=== PATIENT | female | born 1975 | race African-American/Black ===

== ENCOUNTER 2017-07-28 15:29 | Emergency (ER) | payer OTHER ==
--- NOTE | 2017-07-28 15:33 | PDOC ---
Rapid Medical Evaluation Time Seen by Provider: 07/28/17 15:30 Medical Evaluation: Allergies Allergy/AdvReac Type Severity Reaction Status Date / Time Penicillins Allergy Verified 12/13/15 12:44 07/28/17 15:30 I have performed a brief in-person evaluation of this patient. The patient presents with a chief complaint of: Whole body pain w/ DRAPER and blurry pain, ran out of pain meds (oxycodone/naprosyn). H/o sickle cell disease , f/u with heme at [facility] but has been lost to f/u, asthma, partial hysterectomy (2/2 fibroids/anemia) Pertinent physical exam findings:Stable but appears uncomfortable I have ordered the following:labs/ekg/cxr The patient will proceed to the ED for further evaluation. 07/28/17 15:34
[2017-07-28 15:35] VITALS: BP 144/88; PULSE 81; TEMP 97.9; BMI 40.3
[2017-07-28 16:03] LABS: BASO % 0.8 % (0-2.0); EOS % 2.6 % (0-4.5); HEMATOCRIT 41.1 % (32.4-45.2); HEMOGLOBIN 13.7 GM/dL (10.7-15.3); LYMPH % 47.5 % (8-40); MCH 29.5 pg (25.7-33.7); MCHC 33.5 g/dl (32.0-36.0); MEAN CELL VOLUME 88.2 fl (80-96); MEAN PLT VOLUME 8.8 fl (7.5-11.1); MONO % 11.1 % (3.8-10.2); PLATELET COUNT 205 K/MM3 (134-434); RBC 4.66 M/mm3 (3.60-5.2); RDW 13.4 % (11.6-15.6); WHITE BLOOD COUNT 4.6 K/mm3 (4.0-10.0)
[2017-07-28 16:36] LABS: ALBUMIN 4.2 g/dl (3.4-5.0); ANION GAP 3 (8-16); BILIRUBIN,TOTAL 0.3 mg/dL (0.2-1.0); BLOOD UREA NITROGEN 9 mg/dL (7-18); CALCIUM 8.8 mg/dL (8.5-10.1); CHLORIDE 105 mmol/L (98-107); CO2 31 mmol/L (21-32); CREATININE 0.8 mg/dL (0.55-1.02); GLUCOSE,RANDOM 105 mg/dL (74-106); POTASSIUM 4.4 mmol/L (3.5-5.1); SGOT/AST 12 U/L (15-37); SGPT/ALT 17 U/L (12-78); SODIUM 139 mmol/L (136-145); TOT PROT 7.4 g/dl (6.4-8.2)
[2017-07-28 16:39] LABS: ALK PHOS 67 U/L (45-117)
--- NOTE | 2017-07-28 18:41 | PDOC ---
History of Present Illness <Soraya Cabrera - Last Filed: 07/28/17 18:39> - General History Source: Patient Exam Limitations: No Limitations - History of Present Illness Initial Comments: 07/28/17 18:44 The patient is a 42 year old female, with a significant past medical history of sickle cell disease, fibroids(s/p partial hysterectomy), asthma and anemia, who presents to the emergency department with diffuse joint aches for several days. Patient reports her symptoms are similar to her prior sickle cell pain crisis. She denies any associated chest pain, shortness of breath, diaphoresis, or palpitations. Patient states she typically takes Naproxen and Oxycodone for her pain, but ran out of her meds. She endorses a migraine headache, but denies any recent fever, chills, cough, or dizziness. She denies any abdominal pain, nausea , vomiting, diarrhea, constipation, or any other changes in bowel/bladder habits. She denies any recent travel or sick contacts. Allergies: NKDA Past Surgical History: Partial Hysterectomy, right knee surgery Social History: Non smoker. No ETOH or recreational drug use. 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 Knee Surgery at 31y.o) - Suicide/Smoking/Psychosocial Hx Smoking Status: No Smoking History: Never smoked Have you smoked in the past 12 months: No Number of Cigarettes Smoked Daily: 0 Cigars Per Day: 1 Information on smoking cessation initiated: No Hx Alcohol Use: No Drug/Substance Use Hx: No Substance Use Type: None <Soraya Cabrera - Last Filed: 07/28/17 18:39> <Roge Dennison - Last Filed: 07/28/17 18:45> - Past Medical History Allergies/Adverse Reactions: Allergies Allergy/AdvReac Type Severity Reaction Status Date / Time Penicillins Allergy Verified 07/28/17 15:35 Home Medications: Ambulatory Orders Azithromycin [Zithromax Tri-Ihsan (3 DAYS) -] 500 mg PO DAILY #3 tablet 12/13/15 Review of Systems - Review of Systems Able to Perform ROS?: Yes Comments:: 07/28/17 18:44 GENERAL/CONSTITUTIONAL: No fever or chills. No weakness. HEAD, EYES, EARS, NOSE AND THROAT: No change in vision. No ear pain or discharge. No sore throat. CARDIOVASCULAR: No chest pain or shortness of breath. RESPIRATORY: No cough, wheezing, or hemoptysis. GASTROINTESTINAL: No nausea, vomiting, diarrhea or constipation. GENITOURINARY: No dysuria, frequency, or change in urination. MUSCULOSKELETAL: +Diffuse joint aches. No joint or muscle swelling. No neck or back pain. SKIN: No rash NEUROLOGIC: +Headache. No vertigo, loss of consciousness, or change in strength/ sensation. ENDOCRINE: No increased thirst. No abnormal weight change. HEMATOLOGIC/LYMPHATIC: No anemia, easy bleeding, or history of blood clots. ALLERGIC/IMMUNOLOGIC: No hives or skin allergy. <Roge Dennison - Last Filed: 07/28/17 18:45> *Physical Exam - Vital Signs Last Vital Signs Temp Pulse Resp BP Pulse Ox 97.9 F 81 19 144/88 100 07/28/17 15:31 07/28/17 15:31 07/28/17 15:31 07/28/17 15:31 07/28/17 15:31 <Soraya Cabrera - Last Filed: 07/28/17 18:39> - Vital Signs Last Vital Signs Temp Pulse Resp BP Pulse Ox 97.9 F 81 19 144/88 100 07/28/17 15:31 07/28/17 15:31 07/28/17 15:31 07/28/17 15:31 07/28/17 15:31 - Physical Exam Comments: 07/28/17 18:45 GENERAL: Awake, alert, and fully oriented, in no acute distress HEAD: No signs of trauma EYES: PERRLA, EOMI, sclera anicteric, conjunctiva clear ENT: Auricles normal inspection, hearing grossly normal, nares patent. Moist mucosa NECK: Normal ROM, supple, no lymphadenopathy, JVD, or masses LUNGS: Breath sounds equal, clear to auscultation bilaterally. No wheezes, and no crackles HEART: Regular rate and rhythm, normal S1 and S2, no murmurs, rubs or gallops ABDOMEN: Soft, nontender, normoactive bowel sounds. No guarding, no rebound. No masses EXTREMITIES: Normal range of motion, no edema. No clubbing or cyanosis. No cords, erythema, or tenderness. DP/PT pulses 2+ and symmetric. NEUROLOGICAL: Moves all extremities. Normal speech, normal gait SKIN: Warm, Dry, normal turgor, no rashes or lesions noted. <Roge Dennison - Last Filed: 07/28/17 18:45> ED Treatment Course - LABORATORY CBC & Chemistry Diagram: 07/28/17 15:47 07/28/17 15:47 - ADDITIONAL ORDERS Additional order review: Laboratory Results 07/28/17 15:47 Sodium 139 Potassium 4.4 Chloride 105 Carbon Dioxide 31 Anion Gap 3 L BUN 9 Creatinine 0.8 Creat Clearance w eGFR > 60 Random Glucose 105 Calcium 8.8 Total Bilirubin 0.3 AST 12 L ALT 17 Alkaline Phosphatase 67 Creatine Kinase 125 Troponin I < 0.02 Total Protein 7.4 Albumin 4.2 07/28/17 15:47 RBC 4.66 MCV 88.2 MCHC 33.5 RDW 13.4 D MPV 8.8 Neutrophils % 38.0 L D Lymphocytes % 47.5 H D Monocytes % 11.1 H Eosinophils % 2.6 Basophils % 0.8 <Soraya Cabrera - Last Filed: 07/28/17 18:39> - LABORATORY CBC & Chemistry Diagram: 07/28/17 15:47 07/28/17 15:47 - ADDITIONAL ORDERS Additional order review: Laboratory Results 07/28/17 15:47 Sodium 139 Potassium 4.4 Chloride 105 Carbon Dioxide 31 Anion Gap 3 L BUN 9 Creatinine 0.8 Creat Clearance w eGFR > 60 Random Glucose 105 Calcium 8.8 Total Bilirubin 0.3 AST 12 L ALT 17 Alkaline Phosphatase 67 Creatine Kinase 125 Troponin I < 0.02 Total Protein 7.4 Albumin 4.2 07/28/17 15:47 RBC 4.66 MCV 88.2 MCHC 33.5 RDW 13.4 D MPV 8.8 Neutrophils % 38.0 L D Lymphocytes % 47.5 H D Monocytes % 11.1 H Eosinophils % 2.6 Basophils % 0.8 <Roge Dennison - Last Filed: 07/28/17 18:45> Medical Decision Making - Medical Decision Making 07/28/17 18:39 42-year-old female with a history of uterine fibroids sickle cell anemia here today complaining of generalized whole-body pain starting a few days prior. Denies any chest pain no shortness of breath no moderating factors. Normally takes oxycodone or Naprosyn. States she currently does not have a primary care physician denies any fevers or chills no other complaints On exam she is awake alert no acute distress lungs are clear bilaterally heart is regular without any murmurs rubs or gallops abdomen is soft and nontender extremities are warm and well perfused no noted edema Differential sickle pain crisis, anemia, dehydration, plan chest x-ray EKG labs and pain control with oral Percocets reassess for possible admission versus DC home <Soraya Cabrera - Last Filed: 07/28/17 18:39> *DC/Admit/Observation/Transfer - Attestations Scribe Attestion: 07/28/17 18:45 Documentation prepared by Roge Dennison, acting as medical research tech for Soraya Cabrera MD. <Roge Dennison - Last Filed: 07/28/17 18:45>
[2017-07-28] MEDS ORDERED: SODIUM CHLORIDE 0.9% 500 ML INFUS.BAG IV ONE (18:43)
--- NOTE | 2017-07-28 19:51 | PDOC ---
*Physical Exam - Vital Signs Last Vital Signs Temp Pulse Resp BP Pulse Ox 97.9 F 81 19 144/88 100 07/28/17 15:31 07/28/17 15:31 07/28/17 15:31 07/28/17 15:31 07/28/17 15:31 ED Treatment Course - LABORATORY CBC & Chemistry Diagram: 07/28/17 15:47 07/28/17 15:47 - ADDITIONAL ORDERS Additional order review: Laboratory Results 07/28/17 15:47 Sodium 139 Potassium 4.4 Chloride 105 Carbon Dioxide 31 Anion Gap 3 L BUN 9 Creatinine 0.8 Creat Clearance w eGFR > 60 Random Glucose 105 Calcium 8.8 Total Bilirubin 0.3 AST 12 L ALT 17 Alkaline Phosphatase 67 Creatine Kinase 125 Troponin I < 0.02 Total Protein 7.4 Albumin 4.2 07/28/17 15:47 RBC 4.66 MCV 88.2 MCHC 33.5 RDW 13.4 D MPV 8.8 Neutrophils % 38.0 L D Lymphocytes % 47.5 H D Monocytes % 11.1 H Eosinophils % 2.6 Basophils % 0.8 - Medications Given in the ED: ED Medications Discontinued Medications Generic Name Dose Route Start Last Admin Trade Name Freq PRN Reason Stop Dose Admin Oxycodone/Acetaminophen 2 combo 07/28/17 18:37 07/28/17 19:02 Percocet 5/325 - PO 07/28/17 18:38 2 combo ONCE ONE Administration *DC/Admit/Observation/Transfer Diagnosis at time of Disposition: Sickle cell anemia - Discharge Dispostion Disposition: HOME Condition at time of disposition: Stable Admit: No - Prescriptions Prescriptions: Oxycodone HCl/Acetaminophen [Percocet 5-325 mg Tablet] 1 - 2 tab PO Q6H #20 tablet MDD 4 - Referrals Referrals: Say Suh MD [Staff Physician] - Enedelia Pinedo MD [Staff Physician] - - Patient Instructions Printed Discharge Instructions: DI for Sickle Cell Anemia, Pain Crisis -- Adult Additional Instructions: Please follow up with your doctor or the referral given to you in the ER. TAke medication as needed. Avoid alcohol or driving when take Percoet - Post Discharge Activity
== END 2017-07-28 20:03 | disposition home or self-care (01) ==
LOC: JER 15:29
DX: D57.1 Sickle-cell disease without crisis (principal)
CPT/HCPCS: 36415; 80053; 82550; 84484; 84703; 85025; 85044; 99282-25

== ENCOUNTER 2018-05-17 08:40 | Emergency (ER) | payer OTHER ==
[2018-05-17 08:48] VITALS: BP 136/80; PULSE 63; TEMP 98.4; BMI 33.9
--- NOTE | 2018-05-17 09:30 | PDOC ---
History of Present Illness - General Chief Complaint: Hives Stated Complaint: HIVES Time Seen by Provider: 05/17/18 09:18 Exam Limitations: Clinical Condition - History of Present Illness Initial Comments: 05/17/18 09:31 Patient with no significant past medical history present with complaint of 4 day history of worsening with rashes to bilateral lower extremities which scales on rash. Patient reported rash is not itchy and does not know what causes the rash. Patient reported multiple area of red rashes to bilateral legs and thigh areas. Patient denies recent travel. Timing/Duration: other (4 days) Past History - Past Medical History Allergies/Adverse Reactions: Allergies Allergy/AdvReac Type Severity Reaction Status Date / Time Penicillins Allergy Verified 05/17/18 08:48 Home Medications: Ambulatory Orders Doxycycline Hyclate 100 mg PO BID 7 Days #14 tablet 05/17/18 Hydrocortisone 2.5% Lotion [Hytone 2.5% Lotion -] 1 applic TP BID 7 Days #1 bottle 05/17/18 Anemia: Yes Asthma: Yes COPD: No - Surgical History Abdominal Surgery: Yes (ECTOPIC) Orthopedic Surgery: (R. Knee Surgery at 31y.o) - Suicide/Smoking/Psychosocial Hx Smoking Status: No Smoking History: Never smoked Have you smoked in the past 12 months: No Number of Cigarettes Smoked Daily: 0 Cigars Per Day: 1 Hx Alcohol Use: Yes Drug/Substance Use Hx: No Substance Use Type: None Review of Systems - Review of Systems Able to Perform ROS?: Yes Is the patient limited Arabic proficient: No Constitutional: No: Chills, Fever HEENTM: No: Symptoms Reported Respiratory: No: Symptoms reported Cardiac (ROS): No: Symptoms Reported ABD/GI: No: Nausea, Vomiting Integumentary: Yes: See HPI, Rash (red rashes to b/l LE). No: Lumps, Pruritus All Other Systems: Reviewed and Negative *Physical Exam - Vital Signs Last Vital Signs Temp Pulse Resp BP Pulse Ox 98.4 F 63 15 136/80 100 05/17/18 08:44 05/17/18 08:44 05/17/18 08:44 05/17/18 08:44 05/17/18 08:44 - Physical Exam Comments: 05/17/18 09:34 GENERAL: Well developed, well nourished. Awake and alert. No acute distress. HEENT: Normocephalic, atraumatic. PERRLA, EOMI. No conjunctival pallor. Sclera are non-icteric. Moist mucous membranes. Oropharynx is clear. NECK: Supple. Full ROM. CARDIOVASCULAR: Regular rate and rhythm. No murmurs, rubs, or gallops. Distal pulses are 2+ and symmetric. PULMONARY: No evidence of respiratory distress. Lungs clear to auscultation bilaterally. No wheezing, rales or rhonchi. ABDOMINAL: Soft. Non-tender. Non-distended. No rebound or guarding. No organomegaly. Normoactive bowel sounds. SKIN: Multiple erythematous circular rashes with scales to bilateral lower extremity without excoriations.Warm and dry. Normal capillary refill. NEUROLOGICAL: Alert, awake, appropriate. Gait is normal without ataxia. PSYCHIATRIC: Cooperative. Good eye contact. Appropriate mood General Appearance: Yes: Nourished, Appropriately Dressed. No: Apparent Distress Moderate Sedation - Procedure Monitoring Vital Signs: Procedure Monitoring Vital Signs Temperature 98.4 F 05/17/18 08:44 Pulse Rate 63 05/17/18 08:44 Respiratory Rate 15 05/17/18 08:44 Blood Pressure 136/80 05/17/18 08:44 O2 Sat by Pulse Oximetry (%) 100 05/17/18 08:44 Medical Decision Making - Medical Decision Making 05/17/18 09:35 Patient with no significant past medical history present with complaint of 4 day history of with patchy rashes to bilateral lower extremity of unknown etiology. Exam significant for multiple erythematous circular rashes with scales to bilateral lower extremities from lower legs to bilateral thigh area without excoriations. Patient is stable for outpatient treatment with topical hydrocortisone cream and by mouth doxycycline given unknown etiology of rash with dermatology follow- up. *DC/Admit/Observation/Transfer Diagnosis at time of Disposition: Dermatitis - Discharge Dispostion Disposition: HOME Condition at time of disposition: Stable Decision to Admit order: No - Prescriptions Prescriptions: Doxycycline Hyclate 100 mg PO BID 7 Days #14 tablet Hydrocortisone 2.5% Lotion [Hytone 2.5% Lotion -] 1 applic TP BID 7 Days #1 bottle - Referrals Referrals: Rachell Quezada MD [Staff Physician] - - Patient Instructions Printed Discharge Instructions: DI for Atopic Dermatitis - Adult Additional Instructions: Take medications as prescribed. Follow-up referred dermatology as soon as possible - Post Discharge Activity
== END 2018-05-17 09:34 | disposition home or self-care (01) ==
LOC: JERFT 08:40
DX: L20.9 Atopic dermatitis, unspecified (principal)
CPT/HCPCS: 99281-25

== ENCOUNTER 2020-08-10 12:39 | Emergency (ER) | payer OTHER ==
[2020-08-10 13:00] VITALS: TEMP 98.6; BMI 29.0
[2020-08-10] MEDS ORDERED: ACETAMINOPHEN 1000 MG/100 ML VIAL (NON FORMULARY) IVPB ONE (13:15)
[2020-08-10] MEDS ORDERED: SODIUM CHLORIDE 1,000 ML IV STA (13:15)
[2020-08-10] MEDS ORDERED: METOCLOPRAMIDE HCL INJECTION 10 MG/2 ML VIAL IVPUSH ONE (13:15)
[2020-08-10] MEDS ORDERED: METOCLOPRAMIDE HCL INJECTION 10 MG/2 ML VIAL ONE (13:38)
[2020-08-10] MEDS ORDERED: ACETAMINOPHEN INJECTION 100 ML IVPB ONE (13:38)
[2020-08-10 14:30] LABS: BASO % 0.7 % (0-2.0); EOS % 0.5 % (0-4.5); HEMATOCRIT 40.1 % (32.4-45.2); HEMOGLOBIN 13.5 GM/dL (10.7-15.3); LYMPH % 31.6 % (8-40); MCH 29.4 pg (25.7-33.7); MCHC 33.8 g/dl (32.0-36.0); MEAN CELL VOLUME 87.1 fl (80-96); MEAN PLT VOLUME 9.1 fl (7.5-11.1); MONO % 7.9 % (3.8-10.2); NEUT % 59.3 % (42.8-82.8); PLATELET COUNT 215 K/MM3 (134-434); RBC 4.61 M/mm3 (3.60-5.2); RDW 13.8 % (11.6-15.6); RETICULOCYTES 0.85 % (0.5-1.5); WHITE BLOOD COUNT 3.7 K/mm3 (4.0-10.0)
[2020-08-10 14:49] LABS: ALBUMIN 4.1 g/dl (3.4-5.0)
[2020-08-10 14:50] LABS: BLOOD UREA NITROGEN 11.8 mg/dL (7-18)
[2020-08-10 14:52] LABS: CREATININE 0.7 mg/dL (0.55-1.3)
[2020-08-10 14:53] LABS: BILIRUBIN,TOTAL 0.4 mg/dL (0.2-1); TOT PROT 7.4 g/dl (6.4-8.2)
[2020-08-10 17:33] VITALS: BP 129/85; PULSE 73
== END 2020-08-10 17:33 | disposition home or self-care (01) ==
LOC: JER 12:39
PROC: 3E0333Z Introduction of Anti-inflammatory into Peripheral Vein, Percutaneous Approach (ICD-10-PCS; principal; 2020-08-10)
PROC: 3E033GC Introduction of Other Therapeutic Substance into Peripheral Vein, Percutaneous Approach (ICD-10-PCS; 2020-08-10)
PROC: 3E033GC Introduction of Other Therapeutic Substance into Peripheral Vein, Percutaneous Approach (ICD-10-PCS; 2020-08-10)
PROC: 3E0337Z Introduction of Electrolytic and Water Balance Substance into Peripheral Vein, Percutaneous Approach (ICD-10-PCS; 2020-08-10)
DX: G43.909 Migraine, unspecified, not intractable, without status migrainosus (principal)
CPT/HCPCS: 36415; 70450-TC; 70496-TC; 70498-TC; 80053; 83615; 85025; 85045; 99285-25; J0131

== ENCOUNTER 2021-12-17 00:17 | Day surgery (SDC) | payer OTHER ==
[2021-12-17 00:59] VITALS: BMI 32.3
[2021-12-17] MEDS ORDERED: FAMOTIDINE 20 MG/50 ML IVPB 20 MG/50 ML MG IVPB ONE ×2 (01:03→01:09)
[2021-12-17] MEDS ORDERED: ACETAMINOPHEN 1000 MG/100 ML BAG IVPB ONE (01:03)
[2021-12-17] MEDS ORDERED: ONDANSETRON 4 MG/2 ML VIAL IVPUSH ONE (01:03)
[2021-12-17] MEDS ORDERED: SODIUM CHLORIDE 0.9% 500 ML INFUS.BAG IV ONE (01:03)
[2021-12-17] MEDS ORDERED: morphine CARPU-JECT 4 MG/1 ML DISP.SYRIN IVPUSH ONE ×2 (01:03→09:49)
[2021-12-17] MEDS ORDERED: ACETAMINOPHEN INJECTION 100 ML IVPB ONE (01:09)
[2021-12-17] MEDS ORDERED: ONDANSETRON 4 MG/2 ML VIAL ONE ×3 (01:09→14:13)
[2021-12-17] MEDS ORDERED: morphine SULFATE 4 MG/ML VIAL ONE ×2 (01:09→09:54)
[2021-12-17 01:51] LABS: BASO % 1.4 % (0-2.0); EOS % 0.1 % (0-4.5); HEMATOCRIT 40.5 % (32.4-45.2); HEMOGLOBIN 13.3 GM/dL (10.7-15.3); LYMPH % 13.6 % (8-40); MCH 27.9 pg (25.7-33.7); MCHC 32.9 g/dl (32.0-36.0); MEAN CELL VOLUME 84.9 fl (80-96); MEAN PLT VOLUME 8.9 fl (7.5-11.1); NEUT % 81.9 % (42.8-82.8); PLATELET COUNT 230 10^3/uL (134-434); RBC 4.77 M/mm3 (3.60-5.2); RDW 13.6 % (11.6-15.6); RETICULOCYTES 0.88 % (0.5-1.5); WHITE BLOOD COUNT 6.3 K/mm3 (4.0-10.0)
[2021-12-17 02:12] LABS: ALBUMIN 4.4 g/dl (3.4-5.0); BLOOD UREA NITROGEN 7.6 mg/dL (7-18); CALCIUM 9.2 mg/dL (8.5-10.1); MAGNESIUM 1.9 mg/dL (1.8-2.4)
[2021-12-17 02:15] LABS: CREATININE 0.9 mg/dL (0.55-1.3)
[2021-12-17 02:16] LABS: INR 1.21 (0.83-1.09); PROTHROMBIN TIME (PATIENT) 13.9 SEC (9.7-13.0)
[2021-12-17 02:17] LABS: BILIRUBIN,TOTAL 0.4 mg/dL (0.2-1)
[2021-12-17 02:19] LABS: ACTIVATED PTT 27.8 SECONDS (25.2-36.5)
[2021-12-17 02:20] LABS: URINE APPEARANCE CLEAR; URINE BILIRUBIN NEGATIVE (NEGATIVE); URINE COLOR YELLOW; URINE GLUCOSE (UA) NEGATIVE (NEGATIVE); URINE KETONE TRACE (NEGATIVE); URINE LEUK ESTERASE NEGATIVE (NEGATIVE); URINE NITRITE NEGATIVE (NEGATIVE); URINE PROTEIN NEGATIVE (NEGATIVE); URINE UROBILINOGEN 0.2 mg/dL (0.2-1.0)
[2021-12-17] MEDS ORDERED: HYDROmorphone HCL CARPU-JECT 2 MG/1 ML DISP.SYRIN IVPB ONE (13:01)
[2021-12-17] MEDS ORDERED: HYDROmorphone HCl 2 MG/ML VIAL ONE (13:04)
[2021-12-17] MEDS ORDERED: PROPOFOL 40 ML ONE (13:17)
[2021-12-17] MEDS ORDERED: DEXAMETHASONE SOD PHOSPHATE 4 MG/1 ML VIAL ONE ×2 (13:17→14:13)
[2021-12-17] MEDS ORDERED: LIDOCAINE HCL/PF 2% SDV 5ML VIAL ONE ×2 (13:17→14:13)
[2021-12-17] MEDS ORDERED: ROCURONIUM BROMIDE 50 MG/5 ML SYRINGE ONE (13:18)
[2021-12-17] MEDS ORDERED: MIDAZOLAM HCL 2 MG/2 ML SINGLE DOSE VIAL ONE (13:18)
[2021-12-17] MEDS ORDERED: oxyCODONE HCL 5 MG TABLET PO PRN (13:21)
[2021-12-17] MEDS ORDERED: KETOROLAC TROMETHAMINE 30 MG/1 ML VIAL ONE (14:13)
[2021-12-17] MEDS ORDERED: BUPIVACAINE HCL/PF 0.5% (5MG/ML) 10 ML VIAL IJ ONE ×2 (14:13)
[2021-12-17] MEDS ORDERED: METOPROLOL TARTRATE 5 MG/5 ML VIAL ONE (14:22)
[2021-12-17] MEDS ORDERED: hydrALAZINE HCL 20 MG/ML VIAL ONE (16:02)
[2021-12-17] MEDS ORDERED: SUGAMMADEX SODIUM 200 MG/2 ML VIAL ONE (16:35)
[2021-12-17 19:48] VITALS: RESP 20; TEMP 97.2
[2021-12-17 20:01] VITALS: BP 124/67; PULSE 71
== END 2021-12-17 20:13 | disposition home or self-care (01) ==
LOC: JER 00:17 → JASUSAT 13:13
PROVIDERS: ATTEND Student in an Organized Health Care Education/Training Program
PROC: 3E033GC Introduction of Other Therapeutic Substance into Peripheral Vein, Percutaneous Approach (ICD-10-PCS; 2021-12-17)
PROC: 3E033GC Introduction of Other Therapeutic Substance into Peripheral Vein, Percutaneous Approach (ICD-10-PCS; 2021-12-17)
PROC: 3E033NZ Introduction of Analgesics, Hypnotics, Sedatives into Peripheral Vein, Percutaneous Approach (ICD-10-PCS; 2021-12-17)
PROC: 3E033NZ Introduction of Analgesics, Hypnotics, Sedatives into Peripheral Vein, Percutaneous Approach (ICD-10-PCS; 2021-12-17)
PROC: 3E033NZ Introduction of Analgesics, Hypnotics, Sedatives into Peripheral Vein, Percutaneous Approach (ICD-10-PCS; 2021-12-17)
PROC: 3E033NZ Introduction of Analgesics, Hypnotics, Sedatives into Peripheral Vein, Percutaneous Approach (ICD-10-PCS; 2021-12-17)
PROC: 3E033GC Introduction of Other Therapeutic Substance into Peripheral Vein, Percutaneous Approach (ICD-10-PCS; 2021-12-17)
PROC: 3E0333Z Introduction of Anti-inflammatory into Peripheral Vein, Percutaneous Approach (ICD-10-PCS; principal; 2021-12-17 13:30)
DX: R11.0 Nausea (principal); R19.7 Diarrhea, unspecified; R10.9 Unspecified abdominal pain
CPT/HCPCS: 0241U-QW; 36415; 71045-TC-FY; 74177-TC; 76830-TC; 80053; 81003; 82962; 83605; 83690; 83735; 84703; 85025; 85045; 85610; 85730; 86850; 86900; 86901; 87086; 88305-TC; 93005; 93010; 94760; 99285-25; Q9967